=== PATIENT | female | born 1980 | race Asian ===

== ENCOUNTER 2022-06-25 13:59 | Emergency (ER) | payer MEDICAID, SELFPAY ==
[2022-06-25] VITALS (16 sets, daily range): BP systolic 94–130; BP diastolic 58–76; PULSE 53–66; RESP 18–20; TEMP 37; O2SAT 97–100; BMI 23.6
--- NOTE | 2022-06-25 14:40 | ED.ABDPAIN ---
HPI - Abdominal Pain General Date Seen: 06/25/22 Chief Complaint: Diarrhea Stated Complaint: Abdominal Pain Time Seen by Provider: 06/25/22 14:00 Source: patient and family Mode of arrival: ambulatory Limitations: no limitations History of Present Illness HPI narrative: Patient is a 41-year-old female who presents here for evaluation of abdominal pain that seems to be more lower than upper. She has had this for 2 weeks, on off she has tried [id number] remedies, but is unable to verbalize to me what exactly she has tried. At home the pain became so bad today, that she came in to be seen she has also had diarrhea every 15 minutes. She has no past history of recent episodes like this but tells me this is in also has had these in the past. She is currently having her period. Has an IUD in place. No previous history of an abdominal operations, here today with her , she speaks Polish and not all Kiswahili. No radiation to her back for the pain, she has not been passing any blood in her stools, no darkening of her stools, nausea, but no vomiting. No fevers chills or sweats, denies alcohol use, no smoking history, no other family member sick. A patient of the [facility] sees Dr. Maldonado. 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 elicited complaint: abdominal pain Related Data Date of last menstrual period: 06/25/22 Patient : No Home Medications Medication Instructions Recorded Confirmed omega-3 fatty acids-fish oil PO 06/25/22 Previous Rx's Medication Instructions Recorded omeprazole 20 mg capsule,delayed 20 mg PO DAILY #30 caps 06/25/22 release Allergies Allergy/AdvReac Type Severity Reaction Status Date / Time No Known Drug Allergies Allergy Verified 06/25/22 14:23 Review of Systems Status of ROS Reports: 10 or more systems reviewed and unremarkable except as noted in History and below PFSH PFSH Social History Smoking Status: Never smoker How often do you have a drink containing alcohol: never AUDIT-C Alcohol total score: 0 Non-prescribed substance use: denies use Exam Narrative: Exam Narrative: Patient is seen in room 5, she is a very nice thin little lady. Pupils are equal round reactive to light there is no scleral icterus redness, TMs are normal, oropharynx is normal, neck is supple full range of motion there is no lymphadenopathy anterior posterior chains her neck is supple, no meningismus, chest is good air entry bilaterally with no wheezing crackles noted heart sounds are normal, abdomen, shows some tenderness more in the lower than the upper, but when I distract her, with the stethoscope she does not have a lot of tenderness, bowel sounds are there but quiet, no organomegaly, no peritoneal signs, she moves all extremities independently and well, skin reveals no petechiae rashes, neurologically intact in the upper lower extremities. Const: Vital Signs, click to edit/add: Vital Signs - 24 hr 06/25/22 14:20 06/25/22 16:10 06/25/22 16:27 Temperature 98.6 F Pulse Rate 62 Pulse Rate [Pulse Oximeter] 58 L 60 Respiratory Rate 20 18 Blood Pressure Blood Pressure [Ri ght Upper Arm] 130/76 97/63 Pulse Oximetry 100 99 99 Oxygen Delivery Me od Room Air Room Air 06/25/22 16:30 06/25/22 16:31 06/25/22 16:45 Temperature Pulse Rate 60 62 61 Pulse Rate [Pulse Oximeter] Respiratory Rate Blood Pressure 94/58 L Blood Pressure [Ri ght Upper Arm] Pulse Oximetry 100 100 100 Oxygen Delivery Me thod 06/25/22 17:00 06/25/22 17:01 06/25/22 17:02 Temperature Pulse Rate 53 L 60 62 Pulse Rate [Pulse Oximeter] Respiratory Rate Blood Pressure 103/65 Blood Pressure [Ri ght Upper Arm] Pulse Oximetry 100 100 100 Oxygen Delivery Me thod 06/25/22 17:30 06/25/22 17:32 06/25/22 17:33 Temperature Pulse Rate 66 65 62 Pulse Rate [Pulse Oximeter] Respiratory Rate Blood Pressure 115/72 Blood Pressure [Ri ght Upper Arm] Pulse Oximetry 99 100 100 Oxygen Delivery Me thod 06/25/22 18:01 06/25/22 18:02 06/25/22 18:30 Temperature Pulse Rate 58 L 60 62 Pulse Rate [Pulse Oximeter] Respiratory Rate Blood Pressure 111/67 Blood Pressure [Ri ght Upper Arm] Pulse Oximetry 99 99 97 Oxygen Delivery Pa thod 06/25/22 18:31 Temperature Pulse Rate 65 Pulse Rate [Pulse Oximeter] Respiratory Rate Blood Pressure 114/76 Blood Pressure [Ri ght Upper Arm] Pulse Oximetry 100 Oxygen Delivery Me thod Documenting provider has reviewed patient's vital signs: yes Course Course Hospital Course: Patient continued to have abdominal pain urine despite the fairly benign examination. She had no further episodes of diarrhea but that was what actually brought her into the emergency room. We did give her some Dilaudid some Toradol, she still complains of mostly upper discomfort. CT showed some hyperemia and some thickening of the stomach wall possible gastritis, no free air to suggest that this is an ulcer. With perforation. I explained with to her through the word processing machine operator, that I do not exactly know what is causing the problem but I suspect it may be the gastritis. This is likely gotten worse. We will put her on some omeprazole, give her some narcotics for pain med relief, asked her not to take any NSAIDs, have her follow up with her primary care physician is should continue as as has issue she may need endoscopy or possibly colonoscopy if she has ongoing diarrhea. We did not get any stool today so we could not check her for C diff all I think this is unlikely a she did not have any episodes here. Her white count was slightly elevated, but a normal hemoglobin I think we can do this as an outpatient. His vital signs are otherwise normal. I am not sure she completely understood the fact that we do not always find out the cause of her abdominal pain here. But I was reassured by my findings here. I do believe it least a component of this is chronic given the fact on review of her chart from both the [facility], but this seems to be ongoing for a while. I also discussed with her her pulmonary nodules which would mitigate follow-up in 6-12 months if these are deemed high risk by her primary care physician. Vital Signs Vital signs: Initial Vital Signs Temperature 98.6 F 06/25/22 14:20 Temperature Source Temporal Artery Scan 06/25/22 14:20 Pulse Rate 58 L 06/25/22 14:20 Respiratory Rate 20 06/25/22 14:20 Blood Pressure 130/76 06/25/22 14:20 Blood Pressure Mean 94 06/25/22 14:20 Pulse Oximetry 100 06/25/22 14:20 Oxygen Delivery Method Room Air 06/25/22 14:20 Vital Signs Temperature 98.6 F 06/25/22 14:20 Pulse Rate 58 L 06/25/22 14:20 Respiratory Rate 20 06/25/22 14:20 Blood Pressure 130/76 06/25/22 14:20 Pulse Oximetry 100 06/25/22 14:20 Oxygen Delivery Method Room Air 06/25/22 14:20 Temperature 98.6 F 06/25/22 14:20 Pulse Rate 65 06/25/22 18:31 Respiratory Rate 18 06/25/22 16:10 Blood Pressure 114/76 06/25/22 18:31 Pulse Oximetry 100 06/25/22 18:31 Oxygen Delivery Method Room Air 06/25/22 16:10 MDM - Abdominal Pain MDM Narrative Medical decision making narrative: During the evaluation of this patient I considered multiple differential diagnosis including life-threatening differentials which are appendicitis, aortic aneurysm, mesenteric ischemia, bowel perforation, ectopic , volvulus and bowel obstruction, other differential diagnosis include but are not limited to inflammatory bowel disease, cholecystitis, pancreatitis, hepatitis, gastritis, GERD, diverticulitis, peptic ulcer disease, pyelonephritis/UTI, renal colic/stone, pelvic inflammatory disease, cervicitis, endometritis, intrauterine , dysfunctional uterine bleeding, ovarian cyst/torsion, spontaneous as well as other etiologies Medical Records Attestation: I reviewed the patient's medical records. Lab Data Attestation: I reviewed the patient's lab results. Labs: Lab Results 06/25/22 06/25/22 Range/Units 14:40 15:44 WBC 14.66 H (4.50-11.00) K/uL RBC 4.76 (4.00-5.20) m/uL Hgb 14.4 (12.0-16.0) gm/dL Hct 44.3 (33.0-51.0) % MCV 93 (80-100) fL MCH 30 (26-34) pg MCHC 33 (32-36) gm/dL RDW Coeff of Terri 12.3 (11.5-15.5) % Plt Count 227 (140-440) K/uL Neut % (Auto) 86.0 H (42.0-72.0) % Lymph % (Auto) 8.2 L (20-44) % Perkins % (Auto) 4.8 (0.0-11.0) % Eos % (Auto) 0.5 (0.0-7.0) % Baso % (Auto) 0.3 (0.0-3.0) % Neut # (Auto) 12.60 H (1.7-7.0) K/uL Lymph # (Auto) 1.20 (0.90-2.90) K/uL Perkins # (Auto) 0.70 (0.00-0.90) K/UL Eos # (Auto) 0.10 (0.00-0.50) K/uL Baso # (Auto) 0.00 (0.00-0.30) K/uL Sodium 138 (135-149) mmol/L Potassium 3.9 (3.6-5.1) mmol/L Chloride 106 (96-114) mmol/L Carbon Dioxide 26 (20-32) mmol/L BUN 24 (5-24) mg/dL Creatinine 0.8 (0.5-1.5) mg/dL Estimated Creat Clear 70.77 Estimated GFR 94 ml/min Glucose 114 (60-115) mg/dL Lactate 0.9 (0.5-1.9) mmol/L Calcium 8.4 (8.4-10.6) mg/dL Total Bilirubin 0.5 (0.1-1.5) mg/dL Direct Bilirubin 0.1 (0.0-0.5) mg/dL AST 21 (12-35) U/L ALT 20 (4-35) U/L Alkaline Phosphatase 47 (40-150) U/L C-Reactive Protein 0.6 (0.5-1.0) mg/dL Total Protein 7.7 (6.0-8.3) g/dL Albumin 4.2 (3.3-5.0) g/dL Amylase 173 H (18-89) U/L Lipase 235 (23-300) U/L Procalcitonin < 0.03 L (<0.50) ng/mL HCG, Qual Negative (Negative) Urine Color Yellow (Yellow) Urine Appearance Turbid A (Clear) Urine pH 5.5 (5.0-8.5) Ur Specific [place] >= 1.030 (1.000-1.030) Urine Protein 2+ A (Negative) Urine Glucose (UA) Negative (Negative) Urine Ketones Trace A (Negative) Urine Blood 2+ A (Negative) Urine Nitrite Negative (Negative) Urine Bilirubin Negative (Negative) Urine Urobilinogen 0.2 (0.2-1.0) Ur Leukocyte Esterase Negative (Negative) Urine RBC 2-5 A (0-2) Urine WBC 2-5 (0-5) Ur Squamous Epith Cells Moderate A (None-Few) Calcium Oxalate Crystal Moderate A (None) Urine Bacteria Moderate A (None) Urine Opiates Screen Negative (Negative) Ur Oxycodone Screen Negative (Negative) Urine Methadone Screen Negative (Negative) Ur Propoxyphene Screen Negative (Negative) Ur Barbiturates Screen Negative (Negative) U Tricyclic Antidepress Negative (Negative) Ur Phencyclidine Scrn Negative (Negative) Ur Amphetamines Screen Negative (Negative) U Methamphetamines Scrn Negative (Negative) U Benzodiazepines Scrn Negative (Negative) Urine Cocaine Screen Negative (Negative) U Marijuana (THC) Screen Negative (Negative) Ur Drug Screen Comment See Note Imaging Data CT scan - abdomen: Attestation: I have reviewed the pertinent imaging results. My impression: Did not see a can not acute abnormality await radiological over-read. Radiologist's impression: Patient: ALMA LOWE Facility:?[facility] Patient ID:?[id number] Site Patient ID:?[id number]. Site :?[id number] Study:?CT Abdomen/Pelvis W ISOVUE 370-06/25/2022 5:28:47 PM Ordering Physician:Dyan Jay Final Report: INDICATION: diarrhea, abd pain TECHNIQUE: CT abdomen and pelvis acquired with 54 cc Isovue 370 IV contrast. COMPARISON: None. FINDINGS: Lower chest: A few scattered 2-3 millimeter indeterminate pulmonary nodules in the lung bases, likely intrapulmonary lymphoid tissue. ABDOMEN: Liver: Normal enhancement. No focal suspicious hepatic lesions. Gallbladder and biliary: Normal gallbladder without radiopaque stone. Normal caliber bile ducts. Spleen: Normal size and enhancement. Pancreas: Normal enhancement without peripancreatic inflammatory changes or ductal dilatation. Adrenal glands: Normal adrenal glands. Kidneys and ureters: Normal enhancement. No radio-opaque calculi. No hydroureteronephrosis. GI tract: Stomach is partially distended with fluid and oral debris. Gastric antral wall thickening and hyperemia. Normal caliber small and large bowel loops. Normal appendix. Vascular structures: Normal caliber abdominal aorta. Lymph nodes: No lymphadenopathy in the abdomen or pelvis by size criteria. Peritoneum: No free air, free fluid, or focal drainable fluid collection. PELVIS: Genitourinary system: Urinary bladder is decompressed. Age-appropriate uterus and ovaries. Appropriately positioned IUD. SKELETAL STRUCTURES AND SOFT TISSUES: No suspicious lytic or blastic lesions. IMPRESSION: 1. Gastric antral wall thickening and hyperemia. This is a nonspecific finding however can be seen in the setting of underlying gastritis. 2. No obstruction. Normal appendix. No hydroureteronephrosis. 3. A few scattered 2-3 millimeter indeterminate pulmonary nodules in the lung bases, likely intrapulmonary lymphoid tissue. If the patient is considered low risk for primary lung cancer, these do not require additional follow-up. If the patient is considered high-risk for primary lung cancer, consider optional unenhanced chest CT in 12 months to document stability and to assess for underlying malignant potential per Fleischner society guidelines. Please note that all CT scans at this facility use dose modulation, iterative reconstruction, and/or weight-based dosing when appropriate to reduce radiation dose to as low as reasonably achievable. Dictated by Ben Cleveland MD @ 06/25/2022 6:15:31 PM (Electronic Signature) Discharge Plan Discharge Clinical Impression: Gastritis, Abdominal pain Patient Disposition: Home w/ Parent or Adult Condition: Stable Instructions: Gastritis (DC), Abdominal Pain (ED), Upper Endoscopy (DC) Additional Instructions: home,rest and medications as directed. Follow up with next week for recheck. Suspect this is a gastritis type picture. Avoidance of ibuprofen or aleve, Tylenol ok also. May need upper endoscopy if ongoing symptoms and can set this up. Return if vomiting blood,or passing blood by rectum For the spots in the lungs seen on CT recommend repeat imaging in 3-6 months per guidlines, can help with that. Activity Level: Light activity Discharge Diet: Full Liquid Prescriptions: New omeprazole 20 mg capsule,delayed release(DR/EC) 20 mg PO DAILY Qty: 30 2RF No Action omega-3 fatty acids-fish oil [Fish Oil Pearls] PO Follow Up/Referrals: Raiza Maldonado MD [Primary Care Provider] - Stand Alone Forms: [employer] Info Instructions
[2022-06-25 14:53] LABS: Appearance Urine Turbid (Clear); Bilirubin Urine Negative (Negative); Blood Urine 2+ (Negative); Color Urine Yellow (Yellow); Glucose Urine Negative (Negative); Ketones Urine Trace (Negative); Protein Urine 2+ (Negative); Specific Gravity Urine >= 1.030 (1.000-1.030); pH Urine 5.5 (5.0-8.5)
[2022-06-25 14:54] LABS: Leukocyte Esterase Urine Negative (Negative); Nitrite Urine Negative (Negative); Urobilinogen Urine 0.2 (0.2-1.0)
[2022-06-25 14:57] LABS: Bacteria Urine Moderate; Calcium Oxalate Crystals Urine Moderate; Squamous Epithelial Cell Urine Moderate (None-Few)
[2022-06-25 15:01] LABS: Amphetamine Screen Urine Negative (Negative); Barbiturate Screen Urine Negative (Negative); Benzodiazepines Screen Urine Negative (Negative); Cannabinoid Screen Urine Negative (Negative); Cocaine Screen Urine Negative (Negative); Methadone Screen Urine Negative (Negative); Methamphetamines Screen Urine Negative (Negative); Opiate Screen Urine Negative (Negative); Oxycodone Screen Urine Negative (Negative); Phencyclidine Screen Urine Negative (Negative); Tricyclic Antidepressant Urine Negative (Negative)
[2022-06-25] MEDS: KETOROLAC 30 MG/ML inj IVP (15:22)
[2022-06-25] MEDS: ONDANSETRON 2 MG/ML inj 4 MG IVP (15:22)
[2022-06-25] MEDS: 0.9 % SODIUM CHLORIDE 1000 ml 1,000 ML IV ×2 (15:22→16:20)
[2022-06-25 15:52] LABS: Lactate* 0.9 mmol/L (0.5-1.9)
[2022-06-25 15:58] LABS: Basophils Percent Auto 0.3 % (0.0-3.0); Eosinophils Percent Auto 0.5 % (0.0-7.0); Hematocrit 44.3 % (33.0-51.0); Hemoglobin* 14.4 gm/dL (12.0-16.0); Immature Granulocytes Pct Auto 0.2 %; Lymphocytes Percent Auto 8.2 % (20-44); Mean Corpuscular HGB Conc 33 gm/dL (32-36); Mean Corpuscular Hemoglobin 30 pg (26-34); Mean Corpuscular Volume 93 fL (80-100); Monocytes Percent Auto 4.8 % (0.0-11.0); Platelet Count* 227 K/uL (140-440); RDW Coefficient of Variation % 12.3 % (11.5-15.5); Red Blood Count 4.76 m/uL (4.00-5.20); White Blood Count* 14.66 K/uL (4.50-11.00)
[2022-06-25 16:00] LABS: Slide Review Reflex No
[2022-06-25 16:16] LABS: Albumin* 4.2 g/dL (3.3-5.0); Chloride* 106 mmol/L (96-114)
[2022-06-25 16:17] LABS: Potassium* 3.9 mmol/L (3.6-5.1); Sodium* 138 mmol/L (135-149)
[2022-06-25 16:19] LABS: Amylase* 173 U/L (18-89); Creatinine* 0.8 mg/dL (0.5-1.5); Est. Creatinine Clearance* 70.77; Estimated Glomerular Filt Rate 94 ml/min
[2022-06-25 16:20] LABS: Alanine Aminotransferase* 20 U/L (4-35); Alkaline Phosphatase* 47 U/L (40-150); Aspartate Amino Transferase* 21 U/L (12-35); Bilirubin Direct* 0.1 mg/dL (0.0-0.5); Bilirubin Total* 0.5 mg/dL (0.1-1.5); Blood Urea Nitrogen* 24 mg/dL (5-24); Calcium* 8.4 mg/dL (8.4-10.6); Carbon Dioxide* 26 mmol/L (20-32); Glucose* 114 mg/dL (60-115); Lipase* 235 U/L (23-300); Total Protein* 7.7 g/dL (6.0-8.3)
[2022-06-25] MEDS: HYDROmorphone 0.5 mg/0.5 ml inj IVP (16:20)
[2022-06-25 16:23] LABS: C Reactive Protein* 0.6 mg/dL (0.5-1.0)
[2022-06-25 16:33] LABS: HCG Qualitative Serum* Negative (Negative)
--- NOTE | 2022-06-25 16:34 | CRLHL7_ITS ---
For Patients: As a result of the Century Cures Act, medical imaging exams and procedure reports are released immediately into your electronic medical record. You may view this report before your referring provider. If you have questions, please contact your health care provider. INDICATION: diarrhea, abd pain TECHNIQUE: CT abdomen and pelvis acquired with 54 cc Isovue 370 IV contrast. COMPARISON: None. FINDINGS: Lower chest: A few scattered 2-3 millimeter indeterminate pulmonary nodules in the lung bases, likely intrapulmonary lymphoid tissue. ABDOMEN: Liver: Normal enhancement. No focal suspicious hepatic lesions. Gallbladder and biliary: Normal gallbladder without radiopaque stone. Normal caliber bile ducts. Spleen: Normal size and enhancement. Pancreas: Normal enhancement without peripancreatic inflammatory changes or ductal dilatation. Adrenal glands: Normal adrenal glands. Kidneys and ureters: Normal enhancement. No radio-opaque calculi. No hydroureteronephrosis. GI tract: Stomach is partially distended with fluid and oral debris. Gastric antral wall thickening and hyperemia. Normal caliber small and large bowel loops. Normal appendix. Vascular structures: Normal caliber abdominal aorta. Lymph nodes: No lymphadenopathy in the abdomen or pelvis by size criteria. Peritoneum: No free air, free fluid, or focal drainable fluid collection. PELVIS: Genitourinary system: Urinary bladder is decompressed. Age-appropriate uterus and ovaries. Appropriately positioned IUD. SKELETAL STRUCTURES AND SOFT TISSUES: No suspicious lytic or blastic lesions. IMPRESSION: 1. Gastric antral wall thickening and hyperemia. This is a nonspecific finding however can be seen in the setting of underlying gastritis. 2. No obstruction. Normal appendix. No hydroureteronephrosis. 3. A few scattered 2-3 millimeter indeterminate pulmonary nodules in the lung bases, likely intrapulmonary lymphoid tissue. If the patient is considered low risk for primary lung cancer, these do not require additional follow-up. If the patient is considered high-risk for primary lung cancer, consider optional unenhanced chest CT in 12 months to document stability and to assess for underlying malignant potential per Fleischner society guidelines. Please note that all CT scans at this facility use dose modulation, iterative reconstruction, and/or weight-based dosing when appropriate to reduce radiation dose to as low as reasonably achievable. Dictated by Ben Cleveland MD @ 06/25/2022 6:15:31 PM (Electronically Signed)
[2022-06-25 16:43] LABS: Procalcitonin* < 0.03 ng/mL (<0.50)
[2022-06-25] MEDS: diphenhydrAMINE 50 MG/ML inj 25 MG IVP (18:19)
[2022-06-25] MEDS: PANTOPRAZOLE SODIUM 40 MG INJ IVP (18:50)
--- NOTE | 2022-06-25 19:02 | ED.NURSE ---
dc teaching complete, questions answered. sl dc'd intact. pt trying to call at work for ride home.
--- NOTE | 2022-06-25 19:08 | ED.NURSE ---
pt's will not be here until 1999.
== END 2022-06-25 19:51 | disposition home or self-care (01) ==
PROVIDERS: Emergency Provider Family Medicine; PCP Family Medicine
DX: K29.70 Gastritis, unspecified, without bleeding (principal); R10.9 Unspecified abdominal pain
CPT/HCPCS: 36415; 74177; 80048; 80076; 80306; 81001; 82150; 83605; 83690; 84145; 84703; 85025; 86140; 87086; 87186; 87493; 96361; 96374; 96375; 99284; 99285; C9113; J1170; J1200; J1885; J2405; J7030; Q9967

== ENCOUNTER 2023-01-07 08:06 | Outpatient (CLI) | payer MEDICAID, SELFPAY ==
--- NOTE | 2023-01-07 08:15 | CRLHL7_ITS ---
For Patients: As a result of the Century Cures Act, medical imaging exams and procedure reports are released immediately into your electronic medical record. You may view this report before your referring provider. If you have questions, please contact your health care provider. INDICATION: Follow up pelvic pain COMPARISON : CT scan abdomen 06/25/2022. TECHNIQUE: Pelvic MRI. Multiplanar T1 and T2 weighted images. Diffusion-weighted imaging. Postcontrast images. Intravenous gadolinium 10 cc DOTAREM IV. FINDINGS: Uterus: 8.5 cm in length. The endometrial complex appears unremarkable. Uterus is retroverted. There is borderline thickening of the junctional zone of the myometrium slightly greater than 12 millimeters in the posterior uterine corpus. No abnormal uterine mass. Cervix: Unremarkable. Vagina: Unremarkable. Ovaries and adnexal regions: Atrophic. Small follicles. Unremarkable. Cul-de-sac: No significant free fluid Lymph nodes: No suspicious lymph node enlargement. Miscellaneous pelvis: The urinary bladder is unremarkable. The bowel loops are normal caliber. IMPRESSION: 1. Thickening of the junctional zone of the myometrium could suggest adenomyosis. Correlate with symptoms. 2. Retroverted uterus. 3. No additional abnormality. Dictated by Peña Wu MD @ 01/11/2023 8:07:52 PM (Electronically Signed)
== END 2023-01-07 08:07 | disposition home or self-care (01) ==
LOC: MRI 08:08
PROVIDERS: PCP Family Medicine; Visit Provider Urology
DX: R10.2 Pelvic and perineal pain (principal); N85.4 Malposition of uterus
CPT/HCPCS: 72197; A9575

== ENCOUNTER 2023-05-02 10:04 | Outpatient (CLI) | payer MEDICAID, SELFPAY ==
--- NOTE | 2023-05-02 11:42 | W.ANESCHARGE ---
Anesthesia Charges Start Date/Time Anesthesia Start Date: 05/02/23 Anesthesia Start Time: 11:12 Stop Date/Time Anesthesia Stop Date: 05/02/23 Anesthesia Stop Time: 11:48
--- NOTE | 2023-05-02 11:50 | W.ANESCHARGE ---
Anesthesia Charges Start Date/Time Anesthesia Start Date: 05/02/23 Anesthesia Start Time: 11:12 Stop Date/Time Anesthesia Stop Date: 05/02/23 Anesthesia Stop Time: 11:48
== END 2023-05-02 10:05 | disposition home or self-care (01) ==
LOC: OP CLINIC 10:05
PROVIDERS: PCP Family Medicine; Visit Provider Internal Medicine Gastroenterology
DX: R13.10 Dysphagia, unspecified (principal); R10.84 Generalized abdominal pain; R19.7 Diarrhea, unspecified
CPT/HCPCS: 43239; 45380; 813; 88305; 88312; J2704